=== PATIENT | female | born 1955 | race Hispanic/Latino ===

== ENCOUNTER 2023-11-06 08:24 | Day surgery (SDC) | payer MEDICARE ==
--- NOTE | ~2023-11-06 | EKG ---
[facility] [address] [facility] [place], [place] [address] Draft EK completed, results pending confirmation PATIENT NAME: ELI MILLER Electrocardiogram DATE OF : 55 PHYSICIAN: PRELIMINARY REPORT #: [id number] REPORT IS CONFIDENTIAL AND NOT TO BE RELEASED WITHOUT AUTHORIZATION
[2023-11-06] MEDS ORDERED: HYDROCODONE-AC473 M1 PO (09:27)
[2023-11-06] MEDS ORDERED: ACTOS15 MG PO (09:29)
[2023-11-06] MEDS ORDERED: RISEDRONATE SODI5 MG PO (09:29)
[2023-11-06] MEDS ORDERED: GLIPIZIDE ER10 MG PO (09:29)
[2023-11-06] MEDS ORDERED: LIPITOR80 MG GT (09:29)
[2023-11-06] MEDS ORDERED: CLEOCIN HCL300 MG PO (09:30)
[2023-11-06 09:50] VITALS: BP 124/42
[2023-11-06 10:03] LABS: BASOPHILS 0.2 % (0-2); HEMATOCRIT 33.1 % (35.0-50.0); HEMOGLOBIN 11.3 g/dL (12.0-18.0); LYMPHOCYTES 10.5 % (24-44); MCH 30.4 (27-36); MCV 89.4 fl (81-99); NEUTROPHILS 82.3 % (39-80); PLATELET COUNT 238 K/uL (140-440); RDW 13.7 (10.5-15.0)
[2023-11-06 10:27] LABS: ALBUMIN 2.8 g/dL (3.4-5.0); ALBUMIN/GLOBULIN RATIO 0.68 (1.1-2.4); ANION GAP 13.5 (7-21); BILIRUBIN, TOTAL 0.4 ng/dL (0.2-1.0); BUN/CREATININE RATIO 26.47 (6.0-28.6); CALCIUM 8.1 mg/dL (8.5-10.1); CREATININE, SERUM 0.68 mg/dL (0.55-1.02); POTASSIUM 4.5 mmol/L (3.5-5.1); PROTEIN, TOTAL 6.9 g/dL (6.4-8.2)
[2023-11-06] MEDS ORDERED: DEXAMETHASONE SOD PHOS 4 MG/ML VIAL ONE (11:22)
[2023-11-06] MEDS ORDERED: MIDAZOLAM HCL 2 MG/2 ML VIAL ONE (11:22)
[2023-11-06] MEDS ORDERED: ondansetron HCL 4 MG/2 ML VIAL ONE (11:22)
[2023-11-06] MEDS ORDERED: fentaNYL citrate 100 MCG/2 ML VIAL ONE (11:22)
[2023-11-06] MEDS ORDERED: propofoL 200 MG/20 ML VIAL ONE (11:22)
[2023-11-06] MEDS ORDERED: LIDOCAINE HCL 2% 5 ML SDV ONE (11:24)
[2023-11-06] MEDS ORDERED: ROCURONIUM BROMIDE 50 MG/5 ML SYR ONE (11:24)
[2023-11-06] MEDS ORDERED: SUGAMMADEX SODIUM 200 MG/2 ML ML ONE (11:48)
[2023-11-06] MEDS ORDERED: fentaNYL citrate 50 MCG/ML SDV ONE (12:18)
[2023-11-06] MEDS ORDERED: ACETAMINOPHEN 1,000 MG/100 ML VIAL IV PRN (12:30)
[2023-11-06] MEDS ORDERED: ACETA/HYDROCODONE 325/7.5 15 ML BTL PO PRN (12:30)
[2023-11-06] MEDS ORDERED: NALOXONE HCL 0.4 MG SYR IV PRN (12:30)
[2023-11-06] MEDS ORDERED: ondansetron HCL 4 MG/2 ML VIAL IV PRN (12:30)
[2023-11-06] MEDS ORDERED: fentaNYL citrate 100 MCG/2 ML VIAL IV PRN (12:30)
[2023-11-06] MEDS ORDERED: fentaNYL citrate 50 MCG/ML SDV IV PRN (12:45)
[2023-11-06 13:41] VITALS: BP 131/52
--- NOTE | 2023-11-06 14:35 | OR ---
[facility] [address], [place] [address] Signed DATE OF OPERATION: 11/06/2023 SURGEON: Christopher Rojas MD PREOPERATIVE DIAGNOSIS: Left peritonsillar abscess. POSTOPERATIVE DIAGNOSIS: Left peritonsillar abscess. PROCEDURE: Incision and drainage of left peritonsillar abscess. ANESTHESIA: General, orotracheal; [employer], Juan PREOP HISTORY: Eli is a 67-year-old lady with a left peritonsillar abscess. This has been evaluated at [facility] in [place] three times over the past five days. Attempted aspiration CAT scan and it has shown an enlarging left peritonsillar abscess. Last night, she was in the ER. Dr. Harvey called me and we have arranged for evaluation here at [facility]. She is taken to the OR for the above-mentioned procedures. OPERATIVE PROCEDURE AND FINDINGS: After informed consent, the patient was taken to the operating room, placed in supine position, where general orotracheal anesthesia was induced. Patient and procedure were verified. The patient was repositioned. McIvor mouthgag placed into suspension. Definite asymmetry of the pharynx, left side, bulging tonsil medialized. Incision was made through mucosa above the tonsil on the left. Blunt dissection carried down to the peritonsillar space and a scant amount of purulence was obtained. The abscess had partially drained through the inferior tonsillar pole. The abscess cavity was widened with the suction to complete the suction clear. Bleeding was minimal, stopped afterwards. Pharynx was suctioned clear of blood and secretions. The mouth gag was removed. The patient was awakened, extubated, and transported to the recovery room in good condition. No complications. BLOOD LOSS: Minimal. Electronically Signed By: CHRISTOPHER ROJAS MD 11/06/23 1435 PATIENT NAME: ELI MILLER OPERATIVE REPORT DATE OF : 55 REPORT #: [id number] PHYSICIAN: CHRISTOPHER ROJAS MD PCP: JAY DORSEY DO REPORT IS CONFIDENTIAL AND NOT TO BE RELEASED WITHOUT AUTHORIZATION [facility] [address] [place] [address] [place], [place] [address] Signed SPECIMENS: No specimen. DRAINS: No drains. Christopher Rojas MD GC/MODL /[id number] Copies: ~ Electronically Signed By: CHRISTOPHER ROJAS MD 11/06/23 1435 PATIENT NAME: ELI MILLER OPERATIVE REPORT DATE OF : 55 REPORT #: [id number] PHYSICIAN: CHRISTOPHER ROJAS MD PCP: JAY DORSEY DO REPORT IS CONFIDENTIAL AND NOT TO BE RELEASED WITHOUT AUTHORIZATION
[2023-11-06 14:40] VITALS: BP 129/55
== END 2023-11-06 14:55 | disposition home or self-care (01) ==
LOC: DS 08:24
PROVIDERS: Nurse Anesthetist, Certified Registered; ATTEND Otolaryngology
PROC: 0C9P0ZZ Drainage of Tonsils, Open Approach (ICD-10-PCS; principal; 2023-11-06 11:30)
DX: J36 Peritonsillar abscess (principal); E11.9 Type 2 diabetes mellitus without complications; Z79.84 Long term (current) use of oral hypoglycemic drugs
CPT/HCPCS: 36415; 80053; 85025; 93005; 93010; J0131; J1100; J2001; J2250; J2405; J2704; J3010; J3490